=== PATIENT | male | born 1945 | race Caucasian/White ===

== ENCOUNTER 2025-09-28 11:03 | Inpatient (IN) | payer MEDICARE, MEDICAID ==
[~2025-09-28] VITALS: Ht 180.3 cm; Wt 105.7 kg
[2025-09-28 11:05] VITALS: O2SAT 96
[2025-09-28 11:38] LABS: COVID AG,FIA SOURCE NASAL SWAB
[2025-09-28] MEDS ORDERED: CAPS60CR3 TP (11:59)
[2025-09-28] MEDS ORDERED: ALFU10TA30 PO (11:59)
[2025-09-28] MEDS ORDERED: ATOR40TA28 PO (11:59)
[2025-09-28] MEDS ORDERED: TRAM50TA5 PO (12:00)
[2025-09-28] MEDS ORDERED: DICL100G60 TP (12:00)
[2025-09-28] MEDS ORDERED: GABA-1181 PO (12:00)
[2025-09-28] MEDS ORDERED: SENN-376 PO (12:00)
[2025-09-28] MEDS ORDERED: ESCI-8 PO (12:00)
[2025-09-28] MEDS ORDERED: LOSA-382 PO (12:00)
[2025-09-28] MEDS ORDERED: FINA-27 PO (12:00)
[2025-09-28] MEDS ORDERED: TRAZ-257 PO (12:00)
[2025-09-28 12:01] LABS: PLATELET COUNT (AUTO) 138 K/uL (150-450); RED BLOOD CELL COUNT(AUTO) 4.58 MIL/uL (4.50-5.90); RED CELL DISTRIBUTION WIDTH 13.9 % (11.5-14.5); WHITE BLOOD COUNT (AUTO) 4.7 K/uL (4.5-11.0)
[2025-09-28 12:05] LABS: CALCIUM, TOTAL 8.6 mg/dL (8.8-10.5); CREATININE 0.74 mg/dL (0.60-1.30); GLOMERULAR FILTR. RATE CALC > 60 mL/min (>60); GLUCOSE,RANDOM 114 mg/dL (70-110); SODIUM SERUM 141 mmol/L (136-145); UREA NITROGEN, BLOOD 13 mg/dL (7-18)
[2025-09-28 12:15] LABS: SARS-COV2 (COVID) ANTIGEN,FIA Negative (Negative)
[2025-09-28 15:30] VITALS: BP 148/98; PULSE 61; RESP 18; TEMP 97.3; O2SAT 98
[2025-09-28] MEDS ORDERED: ATORVASTATIN CALCIUM 10 MG TABLET PO ONE (18:00)
[2025-09-28] MEDS ORDERED: INFLUENZA VIRUS VACCINE TVS (6MO+) 2025-26/PF 45 MCG/0.5 ML SYRINGE IM. ONE (18:15)
[2025-09-28] MEDS ORDERED: GuaiFENesin/D-METHORPHAN [SUGAR-FREE] 200-20MG/10 ML SYRUP UDCUP PO PRN (18:30)
[2025-09-28] MEDS ORDERED: MAG HYDROX/ALUMINUM HYD/SIMETH ES 30 ML SUSPENSION UDCUP PO PRN (18:30)
[2025-09-28] MEDS ORDERED: ONDANSETRON 4 MG TABLET PO PRN (18:30)
[2025-09-28] MEDS ORDERED: LOPERAMIDE HCL 2 MG CAPSULE PO PRN (18:30)
[2025-09-28] MEDS ORDERED: NICOTINE 14 MG/24 HOUR PATCH TD PRN (18:30)
[2025-09-28] MEDS ORDERED: DOCUSATE SODIUM 100 MG CAPSULE PO PRN (18:30)
[2025-09-28] MEDS ORDERED: ALBUTEROL SULFATE HFA 90 MCG/PUFF 8 GM INHALER IH PRN (18:30)
[2025-09-28] MEDS ORDERED: ACETAMINOPHEN 325 MG TABLET PO PRN (18:30)
[2025-09-28] MEDS ORDERED: PETROLATUM,WHITE 28 GM JELLY TP PRN (18:30)
[2025-09-28] MEDS ORDERED: IBUPROFEN 400 MG TABLET PO PRN (18:30)
[2025-09-28] MEDS ORDERED: MAGNESIUM HYDROXIDE SUSPENSION 30 ML UDCUP PO PRN (18:30)
[2025-09-28] MEDS: ALFUZOSIN HCL 10 MG ER TABLET PO SCH (20:25)
[2025-09-28] MEDS: ATORVASTATIN CALCIUM 40 MG TABLET PO SCH (20:26)
[2025-09-28] MEDS ORDERED: ATORVASTATIN CALCIUM 40 MG TABLET PO SCH (21:00)
[2025-09-28] MEDS: ZOLPIDEM TARTRATE 10 MG TABLET PO PRN (21:03)
[2025-09-28 21:21] VITALS: BP 144/78; PULSE 62; RESP 18; TEMP 97; O2SAT 97
[2025-09-29 08:34] VITALS: BP 134/71; PULSE 71; RESP 16; TEMP 98.4; O2SAT 98
[2025-09-29] MEDS: ESCITALOPRAM OXALATE 10 MG TABLET PO SCH (08:36)
[2025-09-29] MEDS: FINASTERIDE 5 MG TABLET PO SCH (08:36)
[2025-09-29] MEDS: LOSARTAN POTASSIUM 50 MG TABLET PO SCH (08:36)
[2025-09-29] MEDS ORDERED: ESCITALOPRAM OXALATE 10 MG TABLET PO SCH (09:00)
[2025-09-29] MEDS: ALFUZOSIN HCL 10 MG ER TABLET PO SCH (20:30)
[2025-09-29 22:38] VITALS: BP 133/77; PULSE 61; RESP 18; TEMP 98; O2SAT 97
[2025-09-30 10:59] VITALS: BP 147/70; PULSE 59; RESP 18; TEMP 97.6; O2SAT 96
[2025-09-30 21:05] VITALS: BP 147/83; PULSE 70; RESP 18; TEMP 97.3; O2SAT 95
[2025-10-01 11:38] VITALS: BP 135/62; PULSE 60; RESP 16; TEMP 97.8; O2SAT 96
[2025-10-01 21:33] VITALS: BP 154/79; PULSE 69; RESP 18; O2SAT 97
[2025-10-02] MEDS ORDERED: DIMETHICONE TP PRN (06:15)
[2025-10-02 08:58] VITALS: BP 143/75; PULSE 62; RESP 16; TEMP 97.9; O2SAT 96
[2025-10-02 11:14] VITALS: BP 143/75; PULSE 62; RESP 17; TEMP 97.9; O2SAT 96
[2025-10-02] MEDS ORDERED: DIMETHICONE/COLLOIDAL OATMEAL 227 GM LOTION TP PRN (19:00)
== END 2025-10-02 18:30 | DRG 885 ==
LOC: EMS 11:18 → 3EX 16:27
PROVIDERS: ADMIT Psychiatry & Neurology Psychiatry; ATTEND Psychiatry & Neurology Psychiatry
PROC: GZHZZZZ Group Psychotherapy (ICD-10-PCS; principal; 2025-09-28)
DX: F33.2 Major depressive disorder, recurrent severe without psychotic features (principal); N18.9 Chronic kidney disease, unspecified; R45.851 Suicidal ideations; E11.22 Type 2 diabetes mellitus with diabetic chronic kidney disease; I12.9 Hypertensive chronic kidney disease with stage 1 through stage 4 chronic kidney disease, or unspecified chronic kidney disease; G56.00 Carpal tunnel syndrome, unspecified upper limb; G89.29 Other chronic pain; Z20.822 Contact with and (suspected) exposure to COVID-19; G47.00 Insomnia, unspecified; E78.5 Hyperlipidemia, unspecified; E78.00 Pure hypercholesterolemia, unspecified; Z74.01 Bed confinement status; Z79.899 Other long term (current) drug therapy; Z88.5 Allergy status to narcotic agent; Z91.85 Personal history of military service
CPT/HCPCS: 80048; 83036; 84443; 85025; 87081; 99285; G0378; G0480